=== PATIENT | male | born 1995 | race Caucasian/White ===

== ENCOUNTER 2017-03-22 02:30 | Emergency (ER) | payer BC ==
--- NOTE | 2017-03-22 02:49 | PD ---
HPI Chief Complaint: Esparza act/suicidal ideation Time Seen by Provider: 02:44 Travel History International Travel<30 days: No Contact w/Intl Traveler<30days: No Traveled to known affect area: No History of Present Illness HPI 21-year-old male with history of no significant past medical issues, presents to the ER today because he has been Esparza acted for suicidal ideation. Apparently, he had broken up with a girlfriend of 5 years and was upset, wanted to jump over a bridge. He denies any ingestions or any other issues. He also states that he thinks he may have a sexual transmitted disease from her although he has no active lesions currently and is not having burning on urination. Modifying Factors: None Associated Signs & Symptoms: Suicidal ideation, Esparza act Risk Factors: None PFSH Social History Tobacco Use: No Allergies-Medications (Allergen,Severity, Reaction): Coded Allergies: Penicillin (Verified Allergy, Unknown, 03/22/17) Vancomycin (Verified Allergy, Unknown, 03/22/17) Reported Meds & Prescriptions Reported Meds & Active Scripts Active No Active Prescriptions or Reported Medications Review of Systems Except as stated in HPI: all other systems reviewed are Neg Physical Exam Narrative GENERAL: Well-developed young white male patient currently not in acute distress. Awake and oriented 3. Mildly agitated. Alcohol on breath. SKIN: Focused skin assessment warm/dry. HEAD: Atraumatic. Normocephalic. EYES: Pupils equal and round. No scleral icterus. No injection or drainage. ENT: No nasal bleeding or discharge. Mucous membranes pink and moist. NECK: Trachea midline. No JVD. CARDIOVASCULAR: Regular rate and rhythm. No murmur appreciated. RESPIRATORY: No accessory muscle use. Clear to auscultation. Breath sounds equal bilaterally. GASTROINTESTINAL: Abdomen soft, non-tender, nondistended. Hepatic and splenic margins not palpable. MUSCULOSKELETAL: No obvious deformities. No clubbing. No cyanosis. No edema. NEUROLOGICAL: Awake and alert. No obvious cranial nerve deficits. Motor grossly within normal limits. Normal speech. PSYCHIATRIC: Agitated mood and affect; poor insight and judgment. Data Data Last Documented VS Vital Signs Date Time Temp Pulse Resp B/P Pulse Ox O2 Delivery O2 Flow Rate FiO2 03/22/17 02:54 98.1 119 16 149/87 100 Orders Complete Blood Count With Diff (03/22/17 02:44) Comprehensive Metabolic Panel (03/22/17 02:44) Urinalysis - C+S If Indicated (03/22/17 02:44) Psych Screen (03/22/17 02:44) Drug Screen, Random Urine (03/22/17 02:44) Alcohol (Ethanol) (03/22/17 02:44) Gc And Chlamydia Pcr (03/22/17 02:44) Labs Laboratory Tests Test 03/22/17 03/22/17 03:10 03:25 White Blood Count 8.7 TH/MM3 Red Blood Count 4.84 MIL/MM3 Hemoglobin 15.2 GM/DL Hematocrit 42.4 % Mean Corpuscular Volume 87.5 FL Mean Corpuscular Hemoglobin 31.3 PG Mean Corpuscular Hemoglobin 35.8 % Concent Red Cell Distribution Width 13.5 % Platelet Count 233 TH/MM3 Mean Platelet Volume 8.5 FL Neutrophils (%) (Auto) 84.4 % Lymphocytes (%) (Auto) 10.6 % Monocytes (%) (Auto) 4.2 % Eosinophils (%) (Auto) 0.1 % Basophils (%) (Auto) 0.7 % Neutrophils # (Auto) 7.3 TH/MM3 Lymphocytes # (Auto) 0.9 TH/MM3 Monocytes # (Auto) 0.4 TH/MM3 Eosinophils # (Auto) 0.0 TH/MM3 Basophils # (Auto) 0.1 TH/MM3 CBC Comment DIFF FINAL Differential Comment Sodium Level 140 MEQ/L Potassium Level 3.5 MEQ/L Chloride Level 102 MEQ/L Carbon Dioxide Level 27.6 MEQ/L Anion Gap 10 MEQ/L Blood Urea Nitrogen 6 MG/DL Creatinine 0.82 MG/DL Estimat Glomerular Filtration 116 ML/MIN Rate Random Glucose 93 MG/DL Calcium Level 9.0 MG/DL Total Bilirubin 0.5 MG/DL Aspartate Amino Transf 13 U/L (AST/SGOT) Alanine Aminotransferase 18 U/L (ALT/SGPT) Alkaline Phosphatase 45 U/L Total Protein 7.3 GM/DL Albumin 4.7 GM/DL Ethyl Alcohol Level 150 MG/DL Urine Color LIGHT-YELLOW Urine Turbidity CLEAR Urine pH 6.0 Urine Specific Blairs 1.004 Urine Protein NEG mg/dL Urine Glucose (UA) NEG mg/dL Urine Ketones NEG mg/dL Urine Occult Blood NEG Urine Nitrite NEG Urine Bilirubin NEG Urine Urobilinogen LESS THAN 2.0 MG/DL Urine Leukocyte Esterase NEG Urine RBC LESS THAN 1 /hpf Urine WBC LESS THAN 1 /hpf Urine Mucus FEW /lpf Microscopic Urinalysis Comment CULT NOT INDICATED Urine Opiates Screen NEG Urine Barbiturates Screen NEG Urine Amphetamines Screen POS Urine Benzodiazepines Screen NEG Urine Cocaine Screen NEG Urine Cannabinoids Screen NEG MDM Medical Decision Making Medical Screen Exam Complete: Yes Emergency Medical Condition: Yes Medical Record Reviewed: Yes Interpretation(s) Laboratory Tests Test 03/22/17 03/22/17 03:10 03:25 Neutrophils (%) (Auto) 84.4 % (16.0-70.0) Lymphocytes # (Auto) 0.9 TH/MM3 (1.0-4.8) Blood Urea Nitrogen 6 MG/DL (7-18) Aspartate Amino Transf 13 U/L (15-37) (AST/SGOT) Ethyl Alcohol Level 150 MG/DL (0-5) Urine Mucus FEW /lpf (OCC) Urine Amphetamines Screen POS (NEG) Differential Diagnosis Suicidal ideation, alcohol intoxication, rule out metabolic issues versus coingestions Narrative Course Lab work did not indicate any significant metabolic issues. He is intoxicated with alcohol. At this point, my plan would be to medically clear for psych at evaluation. He has been Esparza acted by PD. Diagnosis Primary Impression: SUICIDAL IDEATIONS Additional Impression: Alcohol intoxication Scripts No Active Prescriptions or Reported Meds Disposition: 65 DISC TO PSYCH CARE FACILITY Condition: Stable Lacho Pinto MD March 22, 2017 02:49
[2017-03-22 02:54] VITALS: BP 149/87; PULSE 119; RESP 16; TEMP 98.1; O2SAT 100
[2017-03-22 03:25] LABS: AUTOMATED NEUTROPHIL # 7.3 TH/MM3 (1.8-7.7); BASOPHIL # 0.1 TH/MM3 (0-0.2); BASOPHIL % 0.7 % (0.0-2.0); EOSINOPHIL % 0.1 % (0.0-4.0); HEMATOCRIT 42.4 % (39.0-51.0); HEMO FLAGS DIFF FINAL; LYMPH % 10.6 % (9.0-44.0); LYMPHOCYTE # 0.9 TH/MM3 (1.0-4.8); MEAN CELL VOLUME 87.5 FL (80.0-100.0); MEAN CORPUSCULAR HEMOGLOBIN 31.3 PG (27.0-34.0); MEAN CORPUSCULAR HGB CONC 35.8 % (32.0-36.0); MONO % 4.2 % (0.0-8.0); NEUT % 84.4 % (16.0-70.0); PLATELET COUNT 233 TH/MM3 (150-450); RED BLOOD COUNT 4.84 MIL/MM3 (4.50-5.90); RED CELL DISTRIBUTION WIDTH 13.5 % (11.6-17.2); WHITE BLOOD COUNT 8.7 TH/MM3 (4.0-11.0)
[2017-03-22 03:40] LABS: BLOOD, URINE NEG (NEG); GLUCOSE,URINE NEG (NEG); KETONE, URINE NEG (NEG); MUCUS URINE FEW /lpf (OCC); NITRITE,URINE NEG (NEG); URINE COLOR LIGHT-YELLOW (YELLW/STRAW)
[2017-03-22 03:42] LABS: COMMENT (UR) CULT NOT INDICATED; CULTURE IF INDICATED CULT NOT INDICATED
[2017-03-22 03:43] LABS: AMPHETAMINE, URINE POS (NEG); BARBITURATES, URINE NEG (NEG); COCAINE, URINE NEG (NEG)
[2017-03-22 03:53] LABS: ALT (GPT) 18 U/L (12-78); ANION GAP 10 MEQ/L (5-15); AST (GOT) 13 U/L (15-37); BICARBONATE 27.6 MEQ/L (21.0-32.0); BLOOD UREA NITROGEN 6 MG/DL (7-18); CHLORIDE 102 MEQ/L (98-107); GLOMERULAR FILTRATION RATE 116 ML/MIN (>89); POTASSIUM 3.5 MEQ/L (3.5-5.1); SODIUM (NA) 140 MEQ/L (136-145)
[2017-03-22 03:56] LABS: ALKALINE PHOSPHATASE 45 U/L (45-117); TOTAL BILIRUBIN ADULT 0.5 MG/DL (0.2-1.0)
[2017-03-22 05:34] LABS: CHLAMYDIA PCR NOT DETECTED (NOT DETECT); NEISSERIA PCR NOT DETECTED (NOT DETECT)
[2017-03-22 07:41] VITALS: BP 124/78; PULSE 87; RESP 18
[2017-03-22 11:01] VITALS: BP 139/83; PULSE 100; RESP 18; TEMP 99.4; O2SAT 99
[2017-03-22 14:10] VITALS: BP 147/76; PULSE 86; RESP 18; TEMP 98.2; O2SAT 98
--- NOTE | 2017-03-23 12:35 | PD.CONS ---
Provisional Diagnosis Admission Date [place] I. Substance induced mood disorder, amphetamines and alcohol use disorder [place] II. Deferred [place] III. No significant medical history History of Present Illness Service Psychiatry Consult Requested By Primary Care Physician Unknown HPI The patient is a 21-year-old man, single, unemployed, living with girlfriend, without any previous significant psychiatric history, amphetamines and alcohol use disorder, no medical history, who presents to the ER today because he has been Esparza acted for suicidal ideation. Apparently, he had broken up with a girlfriend of 5 years and was upset, wanted to jump over a bridge. He also states that he thinks he may have a sexual transmitted disease from her although he has no active lesions currently and is not having burning on urination. On psychiatric evaluation patient is now clinically sober , he says that he doesn't remember have told to anybody that he wanted to jump off a bridge. He says that he loves life he doesn't want to . He confirms that he was using amphetamines and he was high on alcohol. He denies depression at this moment, he denies anxiety, psychosis and aide. He denies suicidal and homicidal ideation, he denies visual and auditory hallucinations. Patient is fully oriented 3, no paranoia, no delusions present. Review of Systems Constitutional: DENIES: Diaphoretic episodes, Fatigue, Fever, Weight gain, Weight loss, Chills, Dizziness, Change in appetite, Night Sweats Endocrine: DENIES: Heat/cold intolerance, Polydipsia, Polyuria, Polyphagia Eyes: DENIES: Blurred vision, Diplopia, Eye inflammation, Eye pain, Vision loss , Photosensitivity, Double Vision Ears, nose, mouth, throat: DENIES: Tinnitus, Hearing loss, Vertigo, Nasal discharge, Oral lesions, Throat pain, Hoarseness, Ear Pain, Running Nose, Epistaxis, Sinus Pain, Toothache, Odynophagia Respiratory: DENIES: Apneas, Cough, Snoring, Wheezing, Hemoptysis, Sputum production, Shortness of breath Cardiovascular: DENIES: Chest pain, Palpitations, Syncope, Dyspnea on Exertion , PND, Lower Extremity Edema, Orthopnea, Claudication Gastrointestinal: DENIES: Abdominal pain, Black stools, Bloody stools, Constipation, Diarrhea, Nausea, Vomiting, Difficulty Swallowing, Anorexia Genitourinary: DENIES: Sexual dysfunction, Urinary frequency, Urinary incontinence, Urgency, Hematuria, Dysuria, Nocturia, Penile Discharge, Testicular Pain, Testicular Swelling Musculoskeletal: DENIES: Joint pain, Muscle aches, Stiffness, Joint Swelling, Back pain, Neck pain Integumentary: DENIES: Abnormal pigmentation, Nail changes, Pruritus, Rash Hematologic/lymphatic: DENIES: Bruising, Lymphadenopathy Immunologic/allergic: DENIES: Eczema, Urticaria Neurologic: DENIES: Abnormal gait, Headache, Localized weakness, Paresthesias, Seizures, Speech Problems, Tremor, Poor Balance Psychiatric: DENIES: Anxiety, Confusion, Mood changes, Depression, Hallucinations, Agitation, Suicidal Ideation, Homicidal Ideation, Delusions Past Family Social History Coded Allergies: Penicillin (Verified Allergy, Unknown, 03/22/17) Vancomycin (Verified Allergy, Unknown, 03/22/17) No Active Prescriptions or Reported Meds Family History He denies psychiatric family history Social History Patient lives with girlfriend, is unemployed, highest level of education is high school Physical Exam Vital Signs Vital Signs Date Time Temp Pulse Resp B/P Pulse Ox O2 Delivery O2 Flow Rate FiO2 03/22/17 14:10 98.2 86 18 147/76 98 Room Air Lab Results BAL is 150, toxicology positive for amphetamines Mental Status Examination Appearance Appeared his stated age, good hygiene, calm and cooperative Speech: Unremarkable Orientation: x3 Memory: Unremarkable Thought Process: Logical Hallucination Type: None Suicidal Ideation: No Previous Suicide Attempts: No Homicidal Ideation: No Previous Homicide Attempts: No Insight: Good Judgment: WNL Affect: Good Mood: Appropriate Motor Activity: Normal gait Assessment & Plan Problem List: (1) Substance induced mood disorder Assessment & Plan: Based on this psychiatric evaluation the patient does not present any psychiatric symptom that requires immediate psychiatric intervention. Patient does not meet criteria for psychiatric admission . Esparza act will be lifted . ICD Code: F19.94 Assessment & Plan Estimated LOS: Charles Helms MD March 23, 2017 12:35
== END 2017-03-22 16:50 | disposition home or self-care (01) ==
LOC: NEPE 02:30 → NEPJ 16:50
DX: R45.851 Suicidal ideations (principal); F10.129 Alcohol abuse with intoxication, unspecified; F19.14 Other psychoactive substance abuse with psychoactive substance-induced mood disorder
CPT/HCPCS: 80053; 80307; 81001; 85025; 87491; 87591; 99283